=== PATIENT | female | born 2000 | race Caucasian/White ===

== ENCOUNTER 2022-07-18 23:33 | Emergency (ER) | payer SELFPAY ==
[~2022-07-18] VITALS: Ht 165.1 cm; Wt 72.7 kg
[2022-07-18 23:42] VITALS: BP 138/88; PULSE 77; TEMP 98.2
== END 2022-07-19 00:22 | disposition home or self-care (01) ==
LOC: COL.ER 23:33
DX: S20.212A Contusion of left front wall of thorax, initial encounter (principal); W18.30XA Fall on same level, unspecified, initial encounter
CPT/HCPCS: J1885